=== PATIENT | female | born 1960 | race Caucasian/White ===

== ENCOUNTER 2020-11-20 12:36 | Inpatient (IN) | payer OTHER, SELFPAY ==
[~2020-11-20] VITALS: Ht 170.2 cm; Wt 132.2 kg
[~2020-11-20 12:36] MED LIST: HYDACE5 PO
[2020-11-20 13:54] LABS: BASOPHILS ABSOLUTE AUTO 0.04 K/mm3 (0.00-0.23); BASOPHILS PERCENT AUTO 0 % (0-2); EOSINOPHILS ABSOLUTE AUTO 0.02 K/mm3 (0.00-0.68); EOSINOPHILS PERCENT AUTO 0 % (0-6); Hematocrit 35.1 % (33.0-51.0); Hemoglobin 11.3 g/dL (11.5-16.0); IMMATURE GRAN ABSOLUTE AUTO 0.11 K/mm3 (0.00-0.10); IMMATURE GRAN PERCENT AUTO 1 % (0-1); LYMPHOCYTES ABSOLUTE AUTO 2.34 K/mm3 (0.84-5.20); LYMPHOCYTES PERCENT AUTO 19 % (21-46); MONOCYTES ABSOLUTE AUTO 0.73 K/mm3 (0.16-1.47); MONOCYTES PERCENT AUTO 6 % (4-13); Mean Corpuscular HGB 26.8 pg (26.0-34.0); Mean Corpuscular HGB Conc 32.2 g/dL (31.5-36.5); Mean Corpuscular Volume 83 fL (80-100); NEUTROPHILS ABSOLUTE AUTO 8.91 K/mm3 (1.96-9.15); NEUTROPHILS PERCENT AUTO 73 % (41-73); Platelet Count 386 K/mm3 (150-400); RDW Coefficient Variation 14.4 % (11.7-14.2); RDW Standard Deviation 43.9 fL (35.1-46.3); Red Blood Cell Count 4.21 M/mm3 (3.80-5.20); White Blood Cell Count 12.15 K/mm3 (4.00-11.30)
[2020-11-20 14:08] LABS: Alanine Aminotransfer (ALT/SGP 21 U/L (12-78); Albumin, Blood 3.3 g/dL (3.4-5.0); Albumin/Globulin Ratio 0.8 (0.8-1.8); Alk Phos 52 U/L (50-136); Anion Gap 5 mmol/L (6-16); Aspartate Aminotrans (AST/SGOT 20 U/L (12-37); Bilirubin, Total 0.3 mg/dL (0.1-1.0); Blood Urea Nitrogen 16 mg/dL (8-24); Bun/Creatinine Ratio 16.5 (12.0-20.0); CO2, Blood 29 mmol/L (21-32); Calcium, Blood 8.7 mg/dL (8.5-10.1); Chloride, Blood 103 mmol/L (98-108); Creatinine, Blood 0.97 mg/dL (0.40-1.00); Globulin, Blood 4.1 g/dL (2.2-4.0); Glomerular Filtration Rate >60 (60-); Glucose, Blood 110 mg/dL (70-99); Potassium, Blood 3.2 mmol/L (3.5-5.5); Sodium, Blood 137 mmol/L (136-145); Total Protein, Blood 7.4 g/dL (6.4-8.2)
[2020-11-20] MEDS ORDERED: LOSA50 PO (14:33)
[2020-11-20] MEDS ORDERED: NIFE90ER PO (14:33)
[2020-11-20] MEDS ORDERED: SERT100 PO (14:34)
[2020-11-20 16:08] LABS: Source, Urine Clean Catch
--- NOTE | 2020-11-20 16:16 | NUR ---
PT WAS PREOPED IN ER. History, Chart, Medications and Allergies reviewed before start of procedure. Lungs clear T/O to Auscultation. PT STATED SHE "HAD 3 RITZ CRACKERS AND A SMALL AMOUNT OF WATER AT AROUND 1200." DR. RICH WAS CONSULTED AT STATED IT WAS OKAY TO PROCEED.
[2020-11-20 16:17] LABS: Appearance, Urine Hazy (Clear); Bilirubin, Urine Neg (Neg); Blood, Urine Neg (Neg); Color, Urine Yellow (P-Yellow); Glucose Qualitative, Urine Neg (Neg); Ketones, Urine 2+ (Neg); Leukocyte Esterase, Urine 1+ (Neg); Nitrite, Urine Neg (Neg); Protein, Urine Neg (Neg); Urobilinogen, Urine NORM (Normal)
[2020-11-20 16:29] LABS: Bacteria Mod /hpf; Red Blood Cells, Urine Not Seen /hpf (0-2); Squamous Epithelial Cells Mod /hpf (Few); White Blood Cells, Urine 0-2 /hpf (0-5)
--- NOTE | 2020-11-20 17:25 | NUR ---
11/20/20 1725 Sharona Harrison ASSUMED CARE AT 1700. PT ON OR BED, INTUBATED, DRAPPING IN PROGRESS. GALLAGHER CATH PLACED BY JOSEMANUEL MAGAÑA RN. RELIEF COUNT DONE BY JAMIR BECKER MICHELLE.
--- NOTE | 2020-11-20 20:50 | NUR ---
ARRIVAL TO ICU PT ARRIVED TO ICU2 FROM OR FOR RECOVERY. PT AWAKE, ALERT AND ORIENTED. PT ABLE TO DEEP BREATHE AND COUGH, FOLLOWS COMMANDS, AND GALLAGHER CATHETER IN PLACE DRAINING CLEAR/YELLOW URINE. PT HAS 20G IV IN LT WRIST INFUSING NS VIA GRAVITY, 20G IN LT AC SL. PIKO VAC IN PLACE OVER ABDOMINAL INSICISION WITH SMALL AMOUNT OF RED BLOOD DRAINING. OSTOMY IN PLACE WITH BEEFY/RED STOMA AND NO OUTPUT AT THIS TIME. VS STABLE WITH SPO2 >90% ON RA, HR 80'S AND NSR, SBP IN 110'S, AND RR IN 20'S. SISTER AT BEDSIDE AND PT IS ABLE TO CONTINUE CONVERSATIONS WITH HER. CALLED TO [facility] COLON RN, TO GIVE REPORT, WILL CALL BACK IN 10 MINUTES.
--- NOTE | 2020-11-20 21:00 | NUR ---
OFFICE SUPPORT ASSISTANT DOCUMENTATION REVIEW I HAVE READ AND AGREE WITH ALL NOTES ENTERED BY
--- NOTE | 2020-11-21 05:31 | NUR ---
SHIFT SUMMARY POD1 EX LAP W/ SIGMOID COLLECTOMY AND END OSTOMY ESTABLISHMENT, A/O X4, VSS, TOLERATING CLEAR DIET, VOIDING VIA GALLAGHER, PAIN WELL MANAGED PER EMAR, PT BACK FROM OR AFTER SHIFT CHANGE ANS HAS NOT AMBULATED YET, NO ACUTE EVENTS THIS SHIFT. CALL LIGHT IN REACH, WILL CONINUE TO MONITOR AND REPORT TO ONCOMING DAY RN.
[2020-11-21 06:03] LABS: BASOPHILS ABSOLUTE AUTO 0.02 K/mm3 (0.00-0.23); BASOPHILS PERCENT AUTO 0 % (0-2); EOSINOPHILS PERCENT AUTO 0 % (0-6); Hematocrit 31.2 % (33.0-51.0); Hemoglobin 9.8 g/dL (11.5-16.0); IMMATURE GRAN ABSOLUTE AUTO 0.09 K/mm3 (0.00-0.10); IMMATURE GRAN PERCENT AUTO 1 % (0-1); LYMPHOCYTES ABSOLUTE AUTO 1.77 K/mm3 (0.84-5.20); LYMPHOCYTES PERCENT AUTO 10 % (21-46); MONOCYTES ABSOLUTE AUTO 1.27 K/mm3 (0.16-1.47); MONOCYTES PERCENT AUTO 7 % (4-13); Mean Corpuscular HGB 26.9 pg (26.0-34.0); Mean Corpuscular HGB Conc 31.4 g/dL (31.5-36.5); Mean Corpuscular Volume 86 fL (80-100); Mean Platelet Volume 9.2 fL (9.1-12.4); NEUTROPHILS ABSOLUTE AUTO 14.86 K/mm3 (1.96-9.15); NEUTROPHILS PERCENT AUTO 83 % (41-73); Platelet Count 330 K/mm3 (150-400); RDW Coefficient Variation 14.6 % (11.7-14.2); Red Blood Cell Count 3.64 M/mm3 (3.80-5.20); White Blood Cell Count 18.01 K/mm3 (4.00-11.30)
[2020-11-21 06:21] LABS: Albumin, Blood 2.5 g/dL (3.4-5.0); Albumin/Globulin Ratio 0.8 (0.8-1.8); Bilirubin, Total 0.3 mg/dL (0.1-1.0); Bun/Creatinine Ratio 14.1 (12.0-20.0); Calcium, Blood 7.7 mg/dL (8.5-10.1); Creatinine, Blood 1.28 mg/dL (0.40-1.00); Globulin, Blood 3.3 g/dL (2.2-4.0); Potassium, Blood 3.7 mmol/L (3.5-5.5); Total Protein, Blood 5.8 g/dL (6.4-8.2)
--- NOTE | 2020-11-21 19:15 | NUR ---
SHIFT SUMMARY PATIENT ALERT AND ORIENTED THROUGHOUT SHIFT. UP TO CHAIR X 2. TOLERATING CLEAR LIQUIDS. GALLAGHER PATENT AND DRAINING. MIDLINE ABD INCISION WITH CARMELITA INTACT. MODERATE SATURATION. OSTOMY WITH MODERATE OUTPUT. IV ABX AND FLUIDS RUNNING. PAIN CONTROLLED WITH PO PAIN MEDS. PLAN TO DC GALLAGHER IN AM 11/22/20.
--- NOTE | 2020-11-22 06:06 | NUR ---
SHIFT SUMMARY POD2 EX LAP W/ SIG COLLECTOMY AND NEW OSTOMY PLACEMENT, A/O X4, VSS, TOLERATING DIET, PAIN WELL MANAGED PER EMAR, GALLAGHER DC'D PER ORDER AND STILL WAITING ON FIRST VOID SINCE REMOVAL LESS THAN 2 HOURS AGO, GOOD OUTPUT THROUGH OSTOMY. NO ACUTE EVENTS THIS SHIFT, CALL LIGHT IN REACH, WILL CONTINUE TO MONIOTOR AND REPORT TO ONCOMING DAY RN.
--- NOTE | 2020-11-22 11:59 | NUR ---
DR JAIN IN TO SEE PT.
--- NOTE | 2020-11-22 19:01 | NUR ---
SUMMARY NO ACUTE CHANGES T/O SHIFT. PAIN WELL CONTROLLED PER EMAR. VOIDING WELL. SAT UP IN CHAIR AND AMBULATED IN BATES. CARMELITA DRESSING AND OSTOMY APPLIANCE CHANGED THIS EVENING. PT TOLERATED WELL, ACTIVELY WATCHED OSTOMY APPLIANCE CHANGE AND ASKED QUESTIONS. DENIES ANY NEEDS AT THIS TIME. BEDSIDE REPORT COMPLETED W/LAURA COOPER.
--- NOTE | 2020-11-23 06:45 | NUR ---
SHIFT SUMMARY POD 3 SIG COLLECTOMY, A/O X4, VSS, TOLERATING DIET, AMBULATING W/ 1 SBA, VOIDING WELL, STOOL PASSING THROUGH STOMA INTO OSTOMY, PAIN WELL MANAGED PER EMAR, NO ACUTE EVENTS THIS SHIFT. CALL LIGHT IN REACH, WILL CONTINUE TO MONITOR AND REPORT TO ONCOMING DAY RN.
--- NOTE | 2020-11-23 14:57 | NUR ---
DR JAIN IN TO SEE PT
--- NOTE | 2020-11-23 17:41 | NUR ---
SHIFT SUMMARY POD3 COLECTOMY. A&0X4. PT INDEPENDENT WHILE IN ROOM, UP IN CHAIR FOR MAJORITY OF THE DAY. STOMA IS RED, ROUND AND DRAINING DARK BROWN LIQUID STOOL. PT TOLERATING DIET. PAIN TREATED PRN PER EMAR. ABX ADMINISTERED PER EMAR. CALL LIGHT WITHIN REACH.
--- NOTE | 2020-11-24 06:43 | NUR ---
SUMMARY PT SLEPT QUIETLY TONIGHT.OSTOMY PATENT.PT VOIDING.MINIMAL DISCOMFORT.
--- NOTE | 2020-11-24 18:15 | NUR ---
SHIFT SUMMARY PT HAS DONE VERY WELL TODAY. EATING, DRINKING, VOIDING WELL. OSTOMY W/ GOOD OUTPUT. PT WAS INVOLVED IN APPLIANCE CHANGE TODAY & IS FEELING CONFIDENT W/ IDEA OF D/C TOMORROW.
--- NOTE | 2020-11-25 06:27 | NUR ---
SHIFT SUMMARY A/OX4, IND IN ROOM. COLOSTOMY TO LLQ WITH SOFT BROWN/GREEN OUTPUT. MIDLINE INCISION WITH JUANY OPEN TO AIR WITH NO DRAINAGE NOTED. DENIES PAIN OR SOB. VSS, NO ACUTE CHANGES AT THIS TIME. BED IN LOWEST POSITION WITH CALL LIGHT IN REACH. WILL CONTINUE TO MONITOR AND REPORT TO ONCOMING RN.
--- NOTE | 2020-11-25 15:00 | NUR ---
DISCHARGE PT EATING, DRINKING, VOIDING & AMBULATING WELL. OSTOMY OUTPUT IS DARK BROWN AND SOFT. VSS, PT STATES SHE IS READY TO GO HOME. DISCUSSED DISCHARGE INSTRUCTIONS AND SENT W/ PT. OSTOMY SUPPLIES & BASSEM SENT W/ PT. [employer]AP[employer] FAXED. WHEELED PT OUT VIA W/C.
[2020-12-24] MEDS ORDERED: VITAMIN D310 MC4 PO (15:46)
== END 2020-11-25 15:36 | disposition home or self-care (01) | DRG 330 ==
LOC: ER 12:36 → SURS 12:37
PROVIDERS: Emergency Medicine; Physician Assistant; ADMIT Surgery
PROC: 0DTG0ZZ Resection of Left Large Intestine, Open Approach (ICD-10-PCS; principal; 2020-11-20 15:45)
PROC: 0D1L0Z4 Bypass Transverse Colon to Cutaneous, Open Approach (ICD-10-PCS; 2020-11-20 15:45)
DX: C18.7 Malignant neoplasm of sigmoid colon (principal); Z68.41 Body mass index [BMI] 40.0-44.9, adult; K63.0 Abscess of intestine; C77.2 Secondary and unspecified malignant neoplasm of intra-abdominal lymph nodes; E66.9 Obesity, unspecified; Z90.710 Acquired absence of both cervix and uterus; Z79.899 Other long term (current) drug therapy
CPT/HCPCS: 36415; 74177; 80053; 81001; 85025; 87086; 88309; 99285-25; A9270; J1100; J1170; J1650; J1885; J2370; J2405; J2543; J2704; J3010; J7050; J7120; Q9967

== ENCOUNTER 2020-12-29 10:30 | Day surgery (SDC) | payer OTHER ==
[~2020-12-29] VITALS: Ht 170.2 cm; Wt 126.5 kg
[~2020-12-29 10:30] MED LIST changes: +LOSA50 PO; +NIFE90ER PO; +SERT100 PO; +VITAMIN D310 MC4 PO
--- NOTE | 2020-12-29 11:01 | NUR ---
History, Chart, Medications and Allergies reviewed before start of procedure.Patient confirms NPO status and agrees with scheduled surgery. Pre-Op teaching done. Pt verbalizes understanding.
--- NOTE | 2020-12-29 15:15 | NUR ---
Patient up to Ambulate independently. Gait steady. Discharge instructions reviewed with patient. Patient verbalizes understanding. Copy given to patient to take home. Patient States Post-Procedure ride home has been arranged. Discharged via wheelchair to private car for ride home. Dressing replaced over upper incision dues to placement pulling on pt skin and causing discomfort. Dresing replaced with sterile guaze and tegaderm.
== END 2020-12-30 02:17 | disposition home or self-care (01) ==
LOC: ORSCMMR 10:30 → ORD 12:00 → ORSCMMR 12:00
PROVIDERS: Surgery
PROC: 05HM33Z Insertion of Infusion Device into Right Internal Jugular Vein, Percutaneous Approach (ICD-10-PCS; principal; 2020-12-29 12:00)
PROC: B5131ZA Fluoroscopy of Right Jugular Veins using Low Osmolar Contrast, Guidance (ICD-10-PCS; principal; 2020-12-29 12:00)
DX: C18.6 Malignant neoplasm of descending colon (principal); I10 Essential (primary) hypertension; E66.01 Morbid (severe) obesity due to excess calories; Z68.41 Body mass index [BMI] 40.0-44.9, adult; Z79.899 Other long term (current) drug therapy
CPT/HCPCS: 77001; A9270; C1788; J0690; J1100; J1642; J2250; J2370; J2405; J2704; J3010; J7120

== ENCOUNTER → 2021-01-29 | Outpatient (CLI) | payer OTHER | END | disposition home or self-care (01) | LOC: LAB 14:14 | DX: C18.9 Malignant neoplasm of colon, unspecified (principal) ==